=== PATIENT | female | born 1970 | race Two or more races ===

== ENCOUNTER 2023-09-27 08:11 | Outpatient (CLI) | payer OTHER | END 2023-09-27 08:12 | disposition home or self-care (01) | LOC: NUCLEAR 08:11 | PROVIDERS: ATTEND Thoracic Surgery (Cardiothoracic Vascular Surgery) | DX: I87.2 Venous insufficiency (chronic) (peripheral) (principal) ==

== ENCOUNTER 2023-09-28 09:21 | Outpatient (CLI) | payer OTHER | END 2023-09-28 09:24 | disposition home or self-care (01) | LOC: NUCLEAR 09:21 | PROVIDERS: ATTEND Thoracic Surgery (Cardiothoracic Vascular Surgery) | DX: I73.9 Peripheral vascular disease, unspecified (principal) ==